=== PATIENT | female | born 1995 | race Hispanic/Latino ===

== ENCOUNTER 2017-06-13 09:18 | Emergency (ER) | payer OTHER ==
[2017-06-13 09:29] VITALS: BMI 17.2
[2017-06-13 09:33] VITALS: RESP 18; TEMP 98.2
[2017-06-13] MEDS ORDERED: Sodium Chloride 0.9% 1,000 ML IV STA (09:37)
[2017-06-13 10:18] LABS: BASO # 0.02 K/mm3 (0.0-2.0); BASO % 0.3 % (0.0-3.0); EOS # 0.1 (0.0-0.7); EOS % 2.2 % (1.5-5.0); GRAN # 3.68 (1.4-6.5); GRAN % 57.6 % (50.0-68.0); HEMATOCRIT 38.4 % (36.0-48.0); LYMPH # 2.2 (1.2-3.4); MEAN CELL VOLUME 88.7 fl (80.0-105.0); MEAN CORPUSCULAR HEMOGLOBIN 29.8 pg (25.0-35.0); MEAN CORPUSCULAR HGB CONC 33.6 g/dl (31.0-37.0); MEAN PLATELET VOLUME 9.2 fl (7.0-11.0); MONO # 0.4 (0.1-0.6); MONO % 5.9 % (1.0-6.0); RED CELL DISTRIBUTION WIDTH 12.7 % (11.5-14.5); WHITE BLOOD COUNT 6.4 10^3/ul (4.5-11.0)
--- NOTE | 2017-06-13 10:20 | ED PDOC ---
Arrival/HPI - General Historian: Patient - History of Present Illness Time/Duration: 1 week Symptom Onset: Gradual Symptom Course: Worsening - General Chief Complaint: Back Pain Time Seen by Provider: 06/13/17 09:20 - History of Present Illness Narrative History of Present Illness (Text): 06/13/17 10:18 22-year-old female presents today with a one-week history of worsening bilateral back pain now with dysuria or urinary frequency urgency and hesitancy. Patient denies abdominal pain. No nausea or vomiting. Patient states at times the pain does radiate from the back to the stomach bilaterally. She denies chest pain or shortness of breath. No fevers or chills. Patient states she has had a history of UTIs in the past. Patient states she has been increasing her fluid consumption and using cranberry juice without improvement in her symptoms. (Sidra Guadalupe) Past Medical History - Provider Review Nursing Documentation Reviewed: Yes - Travel History Have you recently traveled outside [place] w/in the past 3 mons?: No - Infectious Disease Hx of Infectious Diseases: None - Tetanus Immunization Tetanus Immunization: Unknown - Cardiac Hx Cardiac Disorders: No - Pulmonary Hx Asthma: No - Neurological Hx Multiple Sclerosis: No - HEENT Hx Difficulty Chewing: No - Renal Hx Renal Failure: No - Endocrine/Metabolic Hx Hyperthyroidism: No - Hematological/Oncological Hx Gum Bleeding: No - Integumentary Hx Eczema: No - Musculoskeletal/Rheumatological Hx Rheumatoid Arthritis: No - Gastrointestinal Hx Diverticulitis: No - Genitourinary/Gynecological Hx Genitourinary Disorders: Yes Hx Urinary Tract Infection: Yes - Psychiatric Hx Psychophysiologic Disorder: No Hx Substance Use: No - Surgical History Hx Arteriovenous Shunt: No - Anesthesia Hx Anesthesia: No Family/Social History - Physician Review Nursing Documentation Reviewed: Yes Family/Social History: Unknown Family HX Smoking Status: Never Smoked Hx Alcohol Use: No Hx Substance Use: No Allergies/Home Meds Allergies/Adverse Reactions: Allergies No Known Allergies Allergy (Verified 06/13/17 09:29) Review of Systems - Review of Systems Constitutional: absent: Fatigue, Fevers Respiratory: absent: SOB, Cough Cardiovascular: absent: Chest Pain, Palpitations Gastrointestinal: absent: Abdominal Pain, Nausea, Vomiting Genitourinary Female: Dysuria, Frequency. absent: Hematuria Musculoskeletal: Back Pain. absent: Arthralgias, Neck Pain Skin: absent: Rash, Pruritis Neurological: absent: Headache, Dizziness Psychiatric: absent: Anxiety, Depression Physical Exam Vital Signs Reviewed: Yes Temperature: Afebrile Blood Pressure: Normal Pulse: Regular Respiratory Rate: Normal Appearance: Positive for: Well-Appearing, Non-Toxic, Comfortable Pain Distress: None Mental Status: Positive for: Alert and Oriented X 3 - Systems Exam Head: Present: Atraumatic Mouth: Present: Moist Mucous Membranes Neck: Present: Normal Range of Motion Respiratory/Chest: Present: Clear to Auscultation, Good Air Exchange. No: Respiratory Distress, Accessory Muscle Use Cardiovascular: Present: Regular Rate and Rhythm, Normal S1, S2. No: Murmurs Abdomen: Present: Normal Bowel Sounds. No: Tenderness, Distention, Peritoneal Signs, Rebound, Guarding Back: Present: Normal Inspection. No: CVA Tenderness, Midline Tenderness, Paraspinal Tenderness Upper Extremity: Present: Normal ROM Lower Extremity: No: Edema Neurological: Present: GCS=15 Skin: Present: Warm, Dry, Normal Color. No: Rashes Psychiatric: Present: Alert, Oriented x 3 Vital Signs Temp Pulse Resp BP Pulse Ox 06/13/17 15:00 70 18 110/78 98 06/13/17 13:00 68 18 109/70 99 06/13/17 11:19 70 18 110/75 99 06/13/17 09:32 98.2 F 77 18 104/70 97 Medical Decision Making ED Course and Treatment: I was available for consultation during PA evaluation. The chart was reviewed by me, and I agree with disposition. The documented history was done by the physician tax commissioner. The documented physical exam was done by the physician tax commissioner. The documented procedures were done by the physician tax commissioner. (Kyree Ha) 06/13/17 10:20 Patient is nontoxic well appearing with stable vital signs presenting with b/l back pain CBC: wnl CMP:wnl Lipase: wnl Urinalysis wnl urine culture pending CAT scan: FINDINGS: LOWER THORAX: Unremarkable. LIVER: Unremarkable. No gross lesion or ductal dilatation. GALLBLADDER AND BILE DUCTS: Unremarkable. PANCREAS: Unremarkable. No gross lesion or ductal dilatation. SPLEEN: Unremarkable. ADRENALS: Unremarkable. No mass. KIDNEYS AND URETERS: Unremarkable. No hydronephrosis. No solid mass. VASCULATURE: Unremarkable. No aortic aneurysm. BOWEL: Unremarkable. No obstruction. No gross mural thickening. APPENDIX: Unremarkable. Normal appendix. PERITONEUM: Unremarkable. No free fluid. No free air. LYMPH NODES: Unremarkable. No enlarged lymph nodes. BLADDER: Unremarkable. REPRODUCTIVE: Unremarkable. BONES: No acute fracture. OTHER FINDINGS: None. IMPRESSION: No evidence of ureteral stone or hydronephrosis. No acute intra-abdominal findings Patient reassessment: pt non toxic well appearing; no distress, stable vitals. will treat patient for dysuria/uti based on symptoms. discussed all results in depth with patient; advised f/u with PMD. advised immediate return if symptoms worsen,persist or if new symptoms develop. Discussed all results with patient in depth Impression: dysuria, flank pain Motrin every 6 hours as needed for pain keflex; 1 capsule 4 times daily x 10 days. pyridium; 1 tablet twice daily x 3 days. Follow up with primary care physician within the next 2 days Return immediately if symptoms worsen persist or if new symptoms develop: High fevers, increasing pain, vomiting, diarrhea or any other concerning symptoms develop. 06/13/17 15:48 (Sidra Guadalupe) - Lab Interpretations Lab Results: 06/13/17 10:05 06/13/17 10:05 Lab Results 06/13/17 10:05: WBC 6.4, RBC 4.33, Hgb 12.9, Hct 38.4, MCV 88.7, MCH 29.8, MCHC 33.6, RDW 12.7, Plt Count 255, MPV 9.2, Gran % 57.6, Lymph % (Auto) 34.0, [place] % (Auto) 5.9, Eos % (Auto) 2.2, Baso % (Auto) 0.3, Gran # 3.68, Lymph # 2.2, [place] # 0.4, Eos # 0.1, Baso # 0.02 06/13/17 10:05: Sodium 143, Potassium 3.8, Chloride 104, Carbon Dioxide 26, Anion Gap 17, BUN 9, Creatinine 0.6 L, Est GFR ( Amer) > 60, Est GFR (Non -Af Amer) > 60, Random Glucose 87, Calcium 9.4, Total Bilirubin 0.3, AST 18, ALT 25, Alkaline Phosphatase 52, Total Protein 7.7, Albumin 4.6, Globulin 3.1, Albumin/Globulin Ratio 1.5, Lipase 109 06/13/17 09:37: Urine Color Yellow, Urine Appearance Clear, Urine pH 6.0, Ur Specific [place] 1.025, Urine Protein Negative, Urine Glucose (UA) Negative, Urine Ketones Negative, Urine Blood Negative, Urine Nitrate Negative, Urine Bilirubin Negative, Urine Urobilinogen 0.2, Ur Leukocyte Esterase Negative, Urine HCG, Qual Negative - RAD Interpretation Radiology Orders: 06/13/17 12:04 ABD & PELVIS W/O PO OR IV CONT [CT] Stat - Medication Orders Current Medication Orders: Discontinued Medications Cephalexin Monohydrate (Keflex) 500 mg PO STAT STA PRN Reason: Protocol Stop: 06/13/17 15:54 Last Admin: 06/13/17 16:02 Dose: 500 mg Sodium Chloride (Sodium Chloride 0.9%) 1,000 mls @ 999 mls/hr IV .Q1H1M STA Stop: 06/13/17 10:37 Last Admin: 06/13/17 10:04 Dose: 999 mls/hr eMAR Start Stop Document 06/13/17 10:04 SF (Rec: 06/13/17 10:04 SF [id number]) Intravenous Solution Start Date 06/13/17 Start Time 10:04 End Date 06/13/17 End time 11:05 Total Infusion Time 61 Ketorolac Tromethamine (Toradol) 30 mg IVP STAT STA Stop: 06/13/17 12:05 Last Admin: 06/13/17 13:12 Dose: 30 mg MAR Pain Assessment Document 06/13/17 13:12 SF (Rec: 06/13/17 13:13 SF [email or web address]) Pain Reassessment Is this a pain reassessment? Yes Sleep Is patient sleeping during reassessment? No Presence of Pain Presence of Pain Yes IVP Administration Document 06/13/17 13:12 SF (Rec: 06/13/17 13:13 SF [email or web address]) Charges for Administration # of IVP Administrations 1 Phenazopyridine HCl (Pyridium) 200 mg PO STAT STA Stop: 06/13/17 15:54 Last Admin: 06/13/17 16:02 Dose: 200 mg Disposition/Present on Arrival - Present on Arrival Any Indicators Present on Arrival: No History of DVT/PE: No History of Uncontrolled Diabetes: No Urinary Catheter: No History of Decub. Ulcer: No History Surgical Site Infection Following: None - Disposition Have Diagnosis and Disposition been Completed?: Yes Disposition Time: 16:00 - Disposition Diagnosis: Dysuria, Flank pain Disposition: HOME/ ROUTINE Condition: GOOD Discharge Instructions (ExitCare): Dysuria (ED), Flank Pain (ED) Additional Instructions: Motrin every 6 hours as needed for pain keflex; 1 capsule 4 times daily x 10 days. pyridium; 1 tablet twice daily x 3 days. Follow up with primary care physician within the next 2 days Return immediately if symptoms worsen persist or if new symptoms develop: High fevers, increasing pain, vomiting, diarrhea or any other concerning symptoms develop. Prescriptions: Cephalexin [Keflex] 500 mg PO QID #40 capsule Phenazopyridine [Phenazopyridine HCl] 200 mg PO BID #6 tab Referrals: [facility] [Outside] - Follow up with primary Carlie Stanton MD [Staff Provider] - Follow up with primary Chung Franklin MD [Staff Provider] - Follow up with primary Forms: [facility] ([place]), WORK NOTE
[2017-06-13 10:28] LABS: ALB/GLOB RATIO 1.5 (1.1-1.8); ALKALINE PHOSPHATASE 52 U/L (38-126); ALT/SGPT 25 U/L (7-56); AST/SGOT 18 U/L (14-36); BILIRUBIN,TOTAL 0.3 mg/dL (0.2-1.3); BLOOD UREA NITROGEN 9 mg/dL (7-21); CALCIUM 9.4 mg/dL (8.4-10.5); CARBON DIOXIDE 26 mmol/L (21-33); CHLORIDE 104 mmol/L (95-110); GFR AFRICAN-AMERICAN > 60; GLUCOSE,RANDOM 87 mg/dL (70-110); LIPASE 109 U/L (23-300); POTASSIUM 3.8 mmol/L (3.6-5.0); SODIUM 143 mmol/L (132-148); TOTAL PROTEIN 7.7 g/dL (5.8-8.3)
[2017-06-13 10:48] LABS: URINE BILIRUBIN NEGATIVE (NEGATIVE); URINE BLOOD NEGATIVE (NEGATIVE); URINE GLUCOSE (UA) NEGATIVE (NEGATIVE); URINE KETONE NEGATIVE (NEGATIVE); URINE LEUKOCYTE ESTERASE NEGATIVE Leu/uL (NEGATIVE); URINE PROTEIN NEGATIVE mg/dL (<30 mg/dL); URINE UROBILINOGEN 0.2 E.U./dL (<1 E.U./dL)
[2017-06-13 10:50] LABS: URINE APPEARANCE CLEAR (CLEAR); URINE COLOR YELLOW (YELLOW)
[2017-06-13 15:56] VITALS: BP 110/78; PULSE 70; O2SAT 98
--- NOTE | 2017-06-13 16:26 | CT ---
PROCEDURE: CT Abdomen and Pelvis without intravenous contrast HISTORY: Flank pain, abdominal pain COMPARISON: None. TECHNIQUE: Without contrast.. Contrast Dose: Radiation dose: Total exam DLP = 290 mGy-cm. This CT exam was performed using one or more of the following dose reduction techniques: Automated exposure control, adjustment of the mA and/or kV according to patient size, and/or use of iterative reconstruction technique. FINDINGS: LOWER THORAX: Unremarkable. LIVER: Unremarkable. No gross lesion or ductal dilatation. GALLBLADDER AND BILE DUCTS: Unremarkable. PANCREAS: Unremarkable. No gross lesion or ductal dilatation. SPLEEN: Unremarkable. ADRENALS: Unremarkable. No mass. KIDNEYS AND URETERS: Unremarkable. No hydronephrosis. No solid mass. VASCULATURE: Unremarkable. No aortic aneurysm. BOWEL: Unremarkable. No obstruction. No gross mural thickening. APPENDIX: Unremarkable. Normal appendix. PERITONEUM: Unremarkable. No free fluid. No free air. LYMPH NODES: Unremarkable. No enlarged lymph nodes. BLADDER: Unremarkable. REPRODUCTIVE: Unremarkable. BONES: No acute fracture. OTHER FINDINGS: None. IMPRESSION: No evidence of ureteral stone or hydronephrosis. No acute intra-abdominal findings
== END 2017-06-13 16:03 | disposition home or self-care (01) ==
LOC: ED 09:18
DX: R30.0 Dysuria (principal); R10.9 Unspecified abdominal pain
CPT/HCPCS: 74176; 80053; 81003; 83690; 84703; 85025; 87086; 96361; 96374; 99285; J1885; J7040

== ENCOUNTER 2017-06-28 15:40 | Emergency (ER) | payer OTHER ==
[2017-06-28 15:40] VITALS: BMI 17.2
[2017-06-28 16:11] VITALS: TEMP 97.8
[2017-06-28] MEDS ORDERED: Sodium Chloride 0.9% 500 ML IV STA (16:36)
[2017-06-28 17:07] LABS: BASO # 0.02 K/mm3 (0.0-2.0); BASO % 0.3 % (0.0-3.0); EOS # 0.1 (0.0-0.7); EOS % 1.2 % (1.5-5.0); GRAN # 4.15 (1.4-6.5); HEMATOCRIT 38.3 % (36.0-48.0); LYMPH # 2.7 (1.2-3.4); MEAN CELL VOLUME 88.2 fl (80.0-105.0); MEAN CORPUSCULAR HEMOGLOBIN 29.3 pg (25.0-35.0); MEAN CORPUSCULAR HGB CONC 33.2 g/dl (31.0-37.0); MEAN PLATELET VOLUME 9.5 fl (7.0-11.0); MONO # 0.4 (0.1-0.6); MONO % 5.5 % (1.0-6.0); RED CELL DISTRIBUTION WIDTH 12.7 % (11.5-14.5); WHITE BLOOD COUNT 7.4 10^3/ul (4.5-11.0)
[2017-06-28 17:10] LABS: ALB/GLOB RATIO 1.7 (1.1-1.8); ALKALINE PHOSPHATASE 52 U/L (38-126); ALT/SGPT 26 U/L (7-56); AST/SGOT 26 U/L (14-36); BILIRUBIN,TOTAL 0.4 mg/dL (0.2-1.3); BLOOD UREA NITROGEN 7 mg/dL (7-21); CALCIUM 9.8 mg/dL (8.4-10.5); CARBON DIOXIDE 24 mmol/L (21-33); CHLORIDE 102 mmol/L (98-107); GFR AFRICAN-AMERICAN > 60; GLUCOSE,RANDOM 93 mg/dL (70-110); POTASSIUM 4.4 mmol/L (3.6-5.0); SODIUM 141 mmol/L (132-148); TOTAL PROTEIN 7.2 g/dL (5.8-8.3)
--- NOTE | 2017-06-28 17:51 | ED PDOC ---
Arrival/HPI - General Chief Complaint: Seizure Time Seen by Provider: 06/28/17 16:14 Historian: Patient - History of Present Illness Narrative History of Present Illness (Text): 06/28/17 17:44 22 yo F no significant past medical history, presents to the ER s/p seizure. Patient arrives via ambulance, she states that she does not recall having a seizure however it was possibly witnessed by one of her coworkers, who had called the ambulance. Patient states she recalls leaving work to eat in her apartment with her roommate, after eating lunch at 2 PM she started walking to work and after that does not recall anything else. Patient's roommate is with her in the emergency room who states that she received a text message from the patient's coworker notifying her that the patient was late to work, she received another message stating that the patient had a seizure. Patient admits that she has had 2 seizures in the past year, she states that those 2 prior episodes are similar to her current episode of seizure today. Her roommate reports witnessing that the patient's last seizure, she states that the patient' s eyes had rolled back and she had tonic-clonic seizure-like activity at that time. Patient states that due to lack of insurance she has not been able to see a specialist regarding her seizure disorder. Patient states she may have hit her head but she is unsure she only complains of nausea otherwise reports no other injuries. Denies any headache, vomiting, neck pain, back pain, chest pain , extremity pain or injury, tongue biting, oral lacerations, dental injury, urinary or bowel incontinence. PMD none Past Medical History - Provider Review Nursing Documentation Reviewed: Yes - Infectious Disease Hx of Infectious Diseases: None - Tetanus Immunization Tetanus Immunization: Unknown - Cardiac Hx Cardiac Disorders: No - Pulmonary Hx Asthma: No - Neurological Hx Multiple Sclerosis: No Hx Seizures: Yes - HEENT Hx Difficulty Chewing: No - Renal Hx Renal Failure: No - Endocrine/Metabolic Hx Hyperthyroidism: No - Hematological/Oncological Hx Gum Bleeding: No - Integumentary Hx Eczema: No - Musculoskeletal/Rheumatological Hx Rheumatoid Arthritis: No - Gastrointestinal Hx Diverticulitis: No - Genitourinary/Gynecological Hx Genitourinary Disorders: Yes Hx Urinary Tract Infection: Yes - Psychiatric Hx Psychophysiologic Disorder: No Hx Substance Use: No - Surgical History Hx Arteriovenous Shunt: No - Anesthesia Hx Anesthesia: No Family/Social History - Physician Review Nursing Documentation Reviewed: Yes Family/Social History: No Known Family HX Smoking Status: Light Smoker < 10 Cigarettes Daily Hx Alcohol Use: No Hx Substance Use: No Allergies/Home Meds Allergies/Adverse Reactions: Allergies No Known Allergies Allergy (Verified 06/13/17 09:29) Review of Systems - Review of Systems Constitutional: Normal. absent: Fatigue, Weight Change, Fevers Respiratory: Normal. absent: SOB, Cough, Sputum Cardiovascular: Normal. absent: Chest Pain, Palpitations, Edema Gastrointestinal: Normal. absent: Abdominal Pain, Stool Changes, Constipation Musculoskeletal: Normal. absent: Arthralgias, Back Pain, Neck Pain Skin: Normal. absent: Rash, Pruritis, Skin Lesions Neurological: Normal. absent: Headache, Dizziness, Focal Weakness Physical Exam - Physical Exam Narrative Physical Exam (Text): 06/28/17 17:52 GENERAL APPEARANCE: Patient is awake, alert, oriented x 3, in no acute distress. SKIN: Warm, dry; (-) cyanosis; (-) rash. HEAD: (+) small area of erythema to the R parietal scalp, (-) scalp swelling or tenderness, (-) temporal artery tenderness. EYES: (-) conjunctival pallor, (-) scleral icterus. ENMT: (-) sinus tenderness; mucous membranes moist. NECK: (-) tenderness, (-) stiffness, (-) meningismus, (-) lymphadenopathy. CHEST AND RESPIRATORY: (-) rales, (-) rhonchi, (-) wheezes; breath sounds equal bilaterally. HEART AND CARDIOVASCULAR: (-) irregularity; (-) murmur, (-) gallop. ABDOMEN AND GI: Soft; (-) tenderness. EXTREMITIES: (-) deformity. NEURO AND PSYCH: Mental status as above. technical publications writer: Pupils equal and reactive; EOMI ; (-) facial asymmetry; tongue and uvula midline. Strength and DTRs symmetric. Babinski normal bilaterally. Vital Signs Temp Pulse Resp BP Pulse Ox 06/28/17 20:10 66 14 122/62 100 06/28/17 18:24 64 14 111/53 L 99 06/28/17 16:00 97.8 F 82 18 113/65 100 Finger Stick Blood Glucose: 87 Medical Decision Making ED Course and Treatment: 06/28/17 17:53 22 yo F no significant past medical history, presents to the ER s/p seizure. Plan: -- Labs -- IV fluids -- Urinalysis -- EKG -- Drug screen -- Reassess and disposition -- CT head Lab results reviewed and are within normal limits. EKG: NSR at 65bpm, R axis, RBBB, (-) acute ST changes, as read by YOVANY. On reevaluation, patient remains awake, alert, oriented 3. Repeat neuro exam shows no acute focal findings. UA, urine drug screen and uhCG still pending. Urine hCG negative. Patient sent to CT. Patient returned from CT without any incident. Patient remains awake, alert, oriented 3. While in the emergency room, patient has not had any further episodes of any seizures. She has no further complaints at this time. CT results reviewed and shows no acute findings. UA is negative for infection. Urine drug screen is positive for opiates, benzos and for cannabinoids. Diagnostic results discussed the patient. Patient states that she was taking Vicodin for recent dental pain, she further adds that she takes Ativan 0.5 mg as needed for anxiety, however she takes it infrequently. Based on history, exam and diagnostic results plan will be for inpatient admission. Plan for further inpatient treatment and evaluation was discussed with the patient, however she is refusing admission at this time. Patient states that she has no insurance and she is concerned about the cost of the hospitalization, she is also more interested in following up as an outpatient, and has no interest in staying in the hospital. YOVANY and JULY Mckinnon discussed the benefits of admission and the risk of leaving AGAINST MEDICAL ADVICE with the patient however patient continues to refuse admission. 06/28/17 19:36 Case d/w Dr. Mendoza, recommends Keppra 250 mg BID and to f/u in the office. Patient refuses further care, inpatient evaluation or treatment in the hospital. Patient informed of the reasons for the following and planned treatment, which patient understands, however still refuses. Patient informed of the risk and benefits of treatment. Informed that the risk could include worsening of current conditions, undiagnosed conditions, disability or even . Patient understands the following risk and the benefits of treatment. Patient has the capacity to make decisions and still refuses treatment by RN, YOVANY and ER MD. Patient encouraged to return to the ER at any time and to follow up with pmd. Patient given referral to social media marketing manager. Prior to patient leaving, she remains, awake, alert and oriented x3, VSS, neuro exam is unchanged. Patient had no further seizures in the ED. Patient given a dose of keppra 250 mg PO. - Lab Interpretations Lab Results: 06/28/17 16:00 06/28/17 16:00 Lab Results 06/28/17 17:56: Urine Color Yellow, Urine Appearance Sl cloudy, Urine pH 6.5, Ur Specific [place] 1.020, Urine Protein Trace H, Urine Glucose (UA) Negative, Urine Ketones Negative, Urine Blood Negative, Urine Nitrate Negative, Urine Bilirubin Negative, Urine Urobilinogen 0.2, Ur Leukocyte Esterase Negative, Urine RBC Negative, Urine WBC 0 - 2, Ur Epithelial Cells 4 - 5, Urine Bacteria Mod 06/28/17 17:56: Urine Opiates Screen Positive H, Urine Methadone Screen Negative , Ur Barbiturates Screen Negative, Ur Phencyclidine Scrn Negative, Ur Amphetamines Screen Negative, U Benzodiazepines Scrn Positive H, U Oth Cocaine Metabols Negative, U Cannabinoids Screen Positive H 06/28/17 16:00: Sodium 141, Potassium 4.4, Chloride 102, Carbon Dioxide 24, Anion Gap 19, BUN 7, Creatinine 0.7, Est GFR ( Amer) > 60, Est GFR (Non- Af Amer) > 60, Random Glucose 93, Calcium 9.8, Total Bilirubin 0.4, AST 26, ALT 26, Alkaline Phosphatase 52, Total Creatine Kinase 91, Total Protein 7.2, Albumin 4.5, Globulin 2.7, Albumin/Globulin Ratio 1.7 06/28/17 16:00: WBC 7.4, RBC 4.34, Hgb 12.7, Hct 38.3, MCV 88.2, MCH 29.3, MCHC 33.2, RDW 12.7, Plt Count 230, MPV 9.5, Gran % 56.0, Lymph % (Auto) 37.0 H, [place] % (Auto) 5.5, Eos % (Auto) 1.2 L, Baso % (Auto) 0.3, Gran # 4.15, Lymph # 2.7, [place] # 0.4, Eos # 0.1, Baso # 0.02 I have reviewed the lab results: Yes Interpretation: All labs normal - RAD Interpretation Narrative RAD Interpretations (Text): 06/28/17 18:32 CT head w/o contrast: FINDINGS: HEMORRHAGE: No intracranial hemorrhage. BRAIN: No mass effect or edema. No atrophy or chronic microvascular ischemic changes. VENTRICLES: Unremarkable. No hydrocephalus. CALVARIUM: Unremarkable. PARANASAL SINUSES: Unremarkable as visualized. No significant inflammatory changes. MASTOID AIR CELLS: Unremarkable as visualized. No inflammatory changes. OTHER FINDINGS: None. IMPRESSION: No acute intracranial abnormalities. No significant findings to account for the clinical presentation. Radiology Orders: 06/28/17 16:36 HEAD W/O CONTRAST [CT] Stat - Medication Orders Current Medication Orders: Discontinued Medications Sodium Chloride (Sodium Chloride 0.9%) 500 mls @ 1,000 mls/hr IV .Q30M STA Stop: 06/28/17 17:05 Last Admin: 06/28/17 16:51 Dose: 1,000 mls/hr eMAR Start Stop Document 06/28/17 16:51 CNR (Rec: 06/28/17 16:52 [id number] Intravenous Solution Start Date 06/28/17 Start Time 16:52 Levetiracetam (Keppra) 250 mg PO STAT STA Stop: 06/28/17 19:37 Last Admin: 06/28/17 20:09 Dose: 250 mg Ondansetron HCl (Zofran Inj) 4 mg IVP STAT STA Stop: 06/28/17 18:32 Last Admin: 06/28/17 18:34 Dose: 4 mg IVP Administration Document 06/28/17 18:34 CNR (Rec: 06/28/17 18:35 [facility]NR [id number] Charges for Administration # of IVP Administrations 1 - PA / OVERCASTER / Resident Statement MD/DO has reviewed & agrees with the documentation as recorded. Disposition/Present on Arrival - Present on Arrival Any Indicators Present on Arrival: No History of DVT/PE: No History of Uncontrolled Diabetes: No Urinary Catheter: No History of Decub. Ulcer: No History Surgical Site Infection Following: None - Disposition Have Diagnosis and Disposition been Completed?: Yes Diagnosis: Seizure Disposition: AGAINST MEDICAL ADVICE Disposition Time: 19:37 Patient Plan: Other (Patient wishes to leave AMA) Condition: STABLE Discharge Instructions (ExitCare): Epilepsy (ED), Against Medical Advice (ED) Print Language: BENGALI Additional Instructions: Thank you for letting us take care of you today. You were treated for seizure. The emergency medical care you received today was directed at your acute symptoms. If you were prescribed any medication, please fill it and take as directed. It may take several days for your symptoms to resolve. Return to the Emergency Department if your symptoms worsen, do not improve, or if you have any other problems. Please contact the neurologist in 2 days for re-evaluation and follow up. Please contact the social media marketing manager for any help you may need Summer Morfin [phone] (ask single fold machine operator to connect you to her extension). Bring any paperwork you were given at discharge with you along with any medications you are taking to your follow up visit. Our treatment cannot replace ongoing medical care by a primary care provider (PCP) outside of the emergency department. Thank you for allowing the [facility] team to be part of your care today. If you had a CT scan: A Radiologist will review the ED reading if any change in treatment is needed we will contact you. Prescriptions: levETIRAcetam [Keppra] 250 mg PO BID #60 tab Referrals: PCP,NO [Primary Care Provider] - Follow up with primary Ángel Mendoza MD [Staff Provider] - Follow up with primary Forms: [employer] ([place]), WORK NOTE
[2017-06-28 18:26] VITALS: RESP 14
[2017-06-28 18:28] LABS: PH,URINE 6.5 (4.7-8.0); URINE BILIRUBIN NEGATIVE (NEGATIVE); URINE BLOOD NEGATIVE (NEGATIVE); URINE GLUCOSE (UA) NEGATIVE (NEGATIVE); URINE KETONE NEGATIVE (NEGATIVE); URINE LEUKOCYTE ESTERASE NEGATIVE Leu/uL (NEGATIVE); URINE PROTEIN TRACE mg/dL (<30 mg/dL); URINE UROBILINOGEN 0.2 E.U./dL (<1 E.U./dL)
--- NOTE | 2017-06-28 18:29 | CT ---
PROCEDURE: CT HEAD WITHOUT CONTRAST. HISTORY: seizure COMPARISON: None available. TECHNIQUE: Axial computed tomography images were obtained through the head/brain without intravenous contrast. Radiation dose: Total exam DLP = go 678.13 mGy-cm. This CT exam was performed using one or more of the following dose reduction techniques: Automated exposure control, adjustment of the mA and/or kV according to patient size, and/or use of iterative reconstruction technique. FINDINGS: HEMORRHAGE: No intracranial hemorrhage. BRAIN: No mass effect or edema. No atrophy or chronic microvascular ischemic changes. VENTRICLES: Unremarkable. No hydrocephalus. CALVARIUM: Unremarkable. PARANASAL SINUSES: Unremarkable as visualized. No significant inflammatory changes. MASTOID AIR CELLS: Unremarkable as visualized. No inflammatory changes. OTHER FINDINGS: None. IMPRESSION: No acute intracranial abnormalities. No significant findings to account for the clinical presentation.
[2017-06-28 18:30] LABS: URINE APPEARANCE SL CLOUDY (CLEAR); URINE COLOR YELLOW (YELLOW)
[2017-06-28 18:33] LABS: URINE RBC NEGATIVE /hpf (0-2); URINE WBC 0 - 2 /hpf (0-6)
[2017-06-28 18:34] LABS: URINE BACTERIA MOD (NEG)
[2017-06-28 20:16] VITALS: BP 122/62; PULSE 66; O2SAT 100
--- NOTE | 2017-06-28 22:30 | CARD ---
APPROVED REPORT EKG Measurement Heart [id number] <Conclusion> Normal sinus rhythm Rightward axis Incomplete right bundle branch block Borderline ECG
== END 2017-06-28 20:22 | disposition left against medical advice (07) ==
LOC: ED 15:40
DX: G40.909 Epilepsy, unspecified, not intractable, without status epilepticus (principal)
CPT/HCPCS: 70450; 80053; 80324; 80345; 80346; 80349; 80353; 80358; 80361; 81001; 82550; 83992; 85025; 87086; 93005; 96374; 99285; J2405; J7040